=== PATIENT | female | born 1945 | race Caucasian/White ===

== ENCOUNTER → 2016-08-19 | Outpatient (CLI) | payer MEDICARE, BC ==
[~2016-08-19] MED LIST: ASCORBIC ACID250 MG PO; CALCIUM 600 +1 EAC3 PO; COLACE-DPS100 MG PO; DESYREL DPS100 MG PO; FLONASE 0.05% D16 GM NS; IRON325 M1 PO; LIPITOR DPS40 MG PO; MAXZIDE-25 DPS1 TAB PO; NEURONTIN DPS300 MG PO; OSTEO BI-FLEX1 EAC1 PO; TENORMIN DPS50 MG PO; TENORMIN-DPS25 MG PO; THERA1 EACH PO; TYLENOL DPS325 MG PO; ULTRAM DPS50 MG PO; ZYRTEC DPS10 MG PO; [UNRECOGNIZED DRUG - OTHER] OU; [UNRECOGNIZED DRUG - OTHER] PO
== END | disposition home or self-care (01) ==
LOC: RAD.S 08:59
DX: Z12.31 Encounter for screening mammogram for malignant neoplasm of breast (principal); R92.1 Mammographic calcification found on diagnostic imaging of breast